=== PATIENT | female | born 1960 | race Caucasian/White ===

== ENCOUNTER 2019-11-30 13:16 | Inpatient (IN) | payer SELFPAY ==
[2019-11-30] VITALS (19 sets, daily range): BP systolic 102–173; BP diastolic 67–100; PULSE 65–92; RESP 15–31; TEMP 36.7–36.9; O2SAT 94–100; BMI 27.3; BMI 27.6
--- NOTE | ~2019-11-30 | CT_ITS ---
EXAMINATION: CT abdomen pelvis w con DATE: 11/30/2019 14:17 INDICATION: Left flank pain. Abdominal pain. TECHNIQUE: Computed tomography (CT) of the abdomen and pelvis was performed with 100 mL Omnipaque 350 intravenous contrast. Automated exposure control and iterative reconstruction technique were employe d. The dose-length product was 429.02 mGy-cm. COMPARISON: CT abdomen and pelvis 03/28/2018 FINDINGS: The visualized portions of the lung bases demonstrate mild atelectasis. No pleural effusion . The heart size is normal. There are coronary artery calcifications. No pericardial effusion. There is a small left posterior diaphragmatic hernia containing fat. The liver, gallbladder, spleen, pancre as, adrenal glands, and kidneys are normal. There is diverticulosis of the colon without evidence of diverticulitis. There are no dilated loops of bowel. The appendix is normal. There are no pathologica lly enlarged lymph nodes. There is no free intraperitoneal fluid. There is severe lower lumbar spondy losis. Lumbar levoscoliosis is noted. IMPRESSION: 1. No etiology for the patient's symptoms. Reviewed, dictated and finalized at location A.
--- NOTE | ~2019-11-30 | XR_ITS ---
EXAMINATION: XR abdomen/kub 1V DATE: 12/01/2019 11:14 INDICATION: Left flank pain. TECHNIQUE: A supine view of the abdomen was obtained. COMPARISON: CT abdomen and pelvis 11/30/2019 FINDINGS: There are no dilated loops of bowel. There are phleboliths in the pelvis. IMPRESSION: 1. Normal bowel gas pattern. Reviewed, dictated and finalized at location A.
--- NOTE | 2019-11-30 13:32 | ED.ABDPAIN ---
HPI - Abdominal Pain General Chief Complaint: Abdominal Pain Stated Complaint: l flank pain Time Seen by Provider: 11/30/19 13:19 Source: RN notes reviewed History of Present Illness HPI narrative: Patient presents shortness of breath from home for left side abdominal pain. Patient states symptoms began 5 days ago and progressively worsened. Pain is located on the left side and radiates around the left flank. Described as sharp and stabbing in nature and associate with nausea and vomiting. Denies any fevers or chills chest pain shortness of breath diarrhea or any other symptoms. States she is taken ibuprofen and Tylenol at home with minimal relief for the pain. Patient states she does have a history of drinking beer daily with her last drink 5 days ago Related Data Allergies Allergy/AdvReac Type Severity Reaction Status Date / Time No Known Allergies Allergy Unknown Verified 11/30/19 13:44 Review of Systems Review of Systems: Narrative: Gen.: Denies fevers or chills ENT: Denies congestion Respiratory: Denies shortness of breath or cough CV: Denies chest pain or palpitations GI: See HPI denies burning, urgency, frequency or hematuria Musculoskeletal: Denies back pain or muscle pain Neuro: Denies numbness, tingling, weakness or focal weakness Skin: Denies rash Except as documented, all other systems reviewed and negative [facility] Past Medical History Medical History Anxiety Hypertension Family History Family History (Updated 09/12/15 @ 23:19 by DOCTOR UNKNOWN) Mother Family history of diabetes mellitus in first degree relative Sibling Family history of diabetes mellitus in first degree relative Social History Social History Smoking status: Former smoker Second hand tobacco smoke exposure: No Smoking end date: 02/15/16 Alcohol intake: current Exam Narrative: Exam Narrative: APPEARANCE: No acute distress, nontoxic, resting in bed HEENT: Normocephalic, atraumatic, OMM RESPIRATORY: No respiratory distress, clear to auscultation bilaterally with no rhonchi wheezing or rales CARDIOVASCULAR: RRR s murmur ABDOMINAL: Soft, nondistended, tender palpation left upper quadrant left lower quadrant, no tenderness in right upper quadrant right lower quadrant, no rebound or guarding MUSCULOSKELETAl: Moves all extremities. No clubbing, cyanosis or edema. NEURO: Awake and alert. Following commands, speech normal, no focal deficits SKIN:: Warm, dry. Normal Color PSYCHIATRIC: Normal affect/mood Course Course Emergency Course: Discussed with NOEL Etienne presentation work-up. Agrees with admission at this time Discussed with patient and family results of workup and diagnosis. Discussed need for admission. Patient and family understand and agree to current treatment plan Vital Signs Vital signs: Vital Signs Pulse Rate 92 11/30/19 13:27 Respiratory Rate 24 H 11/30/19 13:27 Pulse Oximetry 100 11/30/19 13:27 Temperature 98.3 F 11/30/19 13:37 Pulse Rate 84 11/30/19 14:31 Respiratory Rate 21 H 11/30/19 13:46 Blood Pressure 142/86 H 11/30/19 14:31 Pulse Oximetry 100 11/30/19 14:31 MDM - Abdominal Pain Lab Data Result diagrams: 11/30/19 13:34 11/30/19 13:34 Labs: Lab Results 11/30/19 11/30/19 11/30/19 Range/Units 13:34 13:34 13:34 WBC 9.6 (4.5-10.0) K/mm3 RBC 4.44 (4.2-5.4) M/mm3 Hgb 14.0 (12.0-15.0) g/dL Hct 39.1 (37.0-47.0) % MCV 88.1 (80-100) fl MCH 31.5 (26-34) pg MCHC 35.8 (32-36) g/dl RDW 11.1 L (11.5-14.5) % Plt Count 260 (150-375) k/mm3 MPV 10.3 (7.4-10.4) fl Immature Gran % (Auto) 0.2 (0-0.5) % Neut % (Auto) 76.0 H (45.5-73.1) % Lymph % (Auto) 14.0 L (18.3-44.2) % Evangeline % (Auto) 9.4 H (2.6-8.5) % Eos % (Auto) 0.1 (0-4.4) % Baso % (Auto) 0.3 (0.2-1.2)
[2019-11-30 13:47] LABS: Basophils Percent Auto 0.3 % (0.2-1.2); Eosinophils Percent Auto 0.1 % (0-4.4); Hematocrit 39.1 % (37.0-47.0); Immature Granulocyte Absolute 0.02 K/mm3 (0.00-0.031); Immature Granulocyte Percent A 0.2 % (0-0.5); Lymphocytes Absolute Auto 1.34 K/mm3 (0.9-3.2); Mean Corpuscular HGB Conc 35.8 g/dl (32-36); Mean Corpuscular Hemoglobin 31.5 pg (26-34); Mean Corpuscular Volume 88.1 fl (80-100); Mean Platelet Volume 10.3 fl (7.4-10.4); Monocytes Absolute Auto 0.9 K/mm3 (0.1-0.6); Monocytes Percent Auto 9.4 % (2.6-8.5); Neutrophils Absolute Auto 7.3 K/mm3 (1.3-6.7); Platelet Count Result 260 k/mm3 (150-375); Red Blood Count 4.44 M/mm3 (4.2-5.4); Red Cell Distribution Width 11.1 % (11.5-14.5); White Blood Count 9.6 K/mm3 (4.5-10.0)
[2019-11-30] MEDS: SODIUM CHLORIDE 0.9% IV 1,000 ML 999 ML IV CONT (13:49)
[2019-11-30] MEDS: ONDANSETRON INJ 4 MG/2 ML VIAL IV PUSH (13:49)
[2019-11-30] MEDS: MORPHINE SULFATE (*CRX) 4 MG/ML INJ IV PUSH (13:50)
[2019-11-30 13:53] LABS: Add Urine Microscopic? YES; Appearance Urine Clear (Clear); Bacteria Urine Trace /hpf; Bilirubin Urine Negative (Negative); Blood Urine Negative (Negative); Color Urine Yellow (Yellow); Glucose Urine UA Negative (Negative); Ketones Urine Negative (Negative); Leukocyte Esterase Ur Negative LEU/UL (Negative); Mucus Urine Rare /lpf; Nitrate Urine Negative (Negative); Protein Urine Negative (Negative); RBC Urine 0-2 /hpf (0-2); Specific Grav Ur 1.017 (1.001-1.035); Squamous Epithelial Cell Urine Occasional /hpf (Few); WBC Urine 0-3 /hpf
[2019-11-30 14:06] LABS: Alanine Aminotransferase 34 U/L (4-35); Albumin Level 4.8 g/dL (3.5-5.1); Alkaline Phosphatase 75 U/L (38-126); Anion Gap 14 mmol/L (8-16); Aspartate Amino Transferase 49 U/L (14-36); Bilirubin,Total 0.8 mg/dL (0.2-1.3); Blood Urea Nitrogen 14 mg/dL (7-17); Calcium 10.2 mg/dL (8.4-10.2); Carbon Dioxide 27 mmol/L (22-30); Chloride 86 mmol/L (98-107); Estimated CRCL calculation 60 ml/min; Estimated Glomerular Filt Rate > 60; Glucose 118 mg/dL (65-105); Lipase 251 U/L (23-300); Potassium 2.6 mmol/L (3.4-5.0); Sodium 127 mmol/L (137-145)
--- NOTE | 2019-11-30 14:09 | ECG_ITS ---
Measurements Intervals [place] Rate: 73 P: 48 MO: 137 QRS: 33 QRSD: 98 T: 19 QT: 413 QTc: 458 Interpretive Statements SINUS RHYTHM BASELINE ARTIFACT- I, II, III, AVR, AVL, AVF, V3-V6 NORMAL ECG Electronically Signed On 11-30-2019 14:44:08 CDT by Soham Hopkins D.O.
[2019-11-30 14:18] LABS: Magnesium 2.1 mg/dL (1.6-2.3)
[2019-11-30] MEDS: PANTOPRAZOLE SODIUM IV 40 MG VIAL IV PUSH (15:27)
[2019-11-30] MEDS: THIAMINE HCL 200 MG/2 ML VIAL 100 MG IV PUSH (15:27)
--- NOTE | 2019-11-30 15:29 | PC.NURSE ---
Report to [facility] Parada, to continue care. Preparing to admit. Awaiting bed assignment.
--- NOTE | 2019-11-30 16:39 | ADMGEN ---
This patient, Elsi Bella, was admitted to 2 Medical Room 260-01. Patient/family oriented to hospital policies and general routines including ID bracelet, bed and alarms, visiting hours, pain management, procedures, bathroom and other care routines, personal items, smoking policy, room service/diet, and visiting hours. Information on how to activate the Rapid Response Team has been discussed. Patient/Family are encouraged to report perceived risks to care and to ask questions if they do not understand what they are told or what they should do.
[2019-11-30] MEDS: SODIUM CHLORIDE 0.9% IV 1,000 ML 125 ML IV CONT (18:43)
--- NOTE | 2019-11-30 21:00 | PM.IMHP ---
H&P: HPI History of Present Illness Date/Time: 11/30/19 21:00 Chief complaint: Abdominal pain. Narrative: Elsi Bella is a 59-year-old female with history of alcohol abuse, chronic pancreatitis, gastritis, and anxiety presented to the emergency department earlier today with complaints of abdominal pain. She was awakened from sleep at 03:00 on Tuesday morning with pain in the left upper quadrant that she describes as a burning/stabbing pain. It seems to radiate into the left flank and into the left mid back, worse when lying supine and with palpation. When the pain is especially severe she also feels short of breath with nausea and she began vomiting in the last day or so. The symptoms are somewhat similar to when she has had pancreatitis in the past however it has never radiated into the back like it does today. She has not had much to eat due to the pain and nausea. She last had a bowel movement yesterday morning, reports that was unremarkable. She denies fever, chills, and sweats. No hematemesis, melena, or hematochezia. She denies history of kidney stones, dysuria, and hematuria. No chest pain, pleuritic pain, or palpitations. She denies cough and shortness of breath (aside from mild shortness of breath when her pain is severe). She denies epigastric pain, GERD, and indigestion. Her last drink was 5 days ago, and she denies ever having signs or symptoms of alcohol withdrawal. Review of Systems Review of Systems: Narrative: Twelve systems were reviewed with pertinent positives and negatives as per HPI. No recent cold or flu symptoms. She denies exposure to those positive for COVID-19. No dysphagia. No history of kidney stones. Except as documented, all other systems were reviewed and are negative. [facility] Past Medical History Medical History (Updated 11/30/19 @ 22:52 by Jaimie Bae PA-C) Alcohol abuse Alcoholic pancreatitis Anxiety Hypertension Surgical History Surgical History (Updated 11/30/19 @ 22:49 by Jaimie Bae PA-C) History of partial hysterectomy Family History Family History Mother Family history of diabetes mellitus in first degree relative Coronary artery disease Cerebrovascular accident Congestive heart failure Chronic obstructive pulmonary disease Sibling Family history of diabetes mellitus in first degree relative Coronary artery disease Congestive heart failure Chronic obstructive pulmonary disease Sibling Coronary artery disease Congestive heart failure Chronic obstructive pulmonary disease Sibling Coronary artery disease Sibling Coronary artery disease Sibling No problems noted. Social History Social History (Updated 11/30/19 @ 22:50 by Jaimie Bae PA-C) Social History: Surrogate decision maker: Shad Bella, . Code status: Full code. Smoking packs per day: 1.5 Smoking cigarettes per day: 30.0 Years smoked: 23 Smoking pack-years: 34.50 Smoking status: Former smoker Tobacco type: cigarettes Second hand tobacco smoke exposure: Yes Smoking end date: 02/15/16 Alcohol intake: current Drinks per week: 56 Substance use: never Other substance usage details: approximately 8 beers/night. Last use: 11/24/2019. Additional living arrangements comments: Resides in [place] with her . They have 2 grown children. 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 Spiritual care concerns: No Meds Home Medications and Allergies Home Medications Medication Instructions Recorded Confirmed Type metoprolol succinate 50 mg 50 mg PO DAILY #90 tablet 01/05/19 11/30/19 Rx tablet,extended release 24 hr hydrochlorothiazide 50 mg tablet 50 mg PO DAILY #30 tablet 08/12/19 11/30/19 Rx sertraline 50 mg tablet 50 mg PO DAILY #30 tablet 08/12/19 11/30/19 Rx losartan 100 mg tablet 100 mg PO DAILY #90 t
[2019-11-30] MEDS: MORPHINE SULFATE (*CRX) 2 MG/ML INJ IV PUSH (22:17)
[2019-11-30 23:52] LABS: Anion Gap 5 mmol/L (8-16); Blood Urea Nitrogen 9 mg/dL (7-17); Carbon Dioxide 30 mmol/L (22-30); Chloride 96 mmol/L (98-107); Estimated CRCL calculation 80 ml/min; Estimated Glomerular Filt Rate > 60; Glucose 103 mg/dL (65-105); Magnesium 2.2 mg/dL (1.6-2.3); Potassium 2.8 mmol/L (3.4-5.0); Sodium 131 mmol/L (137-145)
[2019-12-01] VITALS: PULSE 71
[2019-12-01] MEDS: POTASSIUM CHLORIDE 20 MEQ TABLET 40 MEQ PO ×2 (00:55→09:14)
[2019-12-01] MEDS: DICYCLOMINE HCL INJ 20 MG/2 ML VIAL IM (00:55)
[2019-12-01] MEDS: KCL 20MEQ/0.9% SOD CHL 1,000 ML 125 ML IV CONT ×2 (00:55→09:16)
[2019-12-01] MEDS: ONDANSETRON INJ 4 MG/2 ML VIAL IV PUSH ×2 (01:02→05:27)
[2019-12-01 04:00] VITALS: PULSE 72
[2019-12-01] MEDS: MORPHINE SULFATE (*CRX) 2 MG/ML INJ IV PUSH ×2 (05:27→10:02)
[2019-12-01 05:34] LABS: Basophils Percent Auto 0.4 % (0.2-1.2); Eosinophils Percent Auto 0.6 % (0-4.4); Hematocrit 34.9 % (37.0-47.0); Hemoglobin 12.1 g/dL (12.0-15.0); Immature Granulocyte Absolute 0.01 K/mm3 (0.00-0.031); Immature Granulocyte Percent A 0.2 % (0-0.5); Lymphocytes Absolute Auto 1.43 K/mm3 (0.9-3.2); Lymphocytes Percent Auto 26.5 % (18.3-44.2); Mean Corpuscular HGB Conc 34.7 g/dl (32-36); Mean Corpuscular Hemoglobin 31.7 pg (26-34); Mean Corpuscular Volume 91.4 fl (80-100); Mean Platelet Volume 10.4 fl (7.4-10.4); Monocytes Absolute Auto 0.7 K/mm3 (0.1-0.6); Monocytes Percent Auto 12.4 % (2.6-8.5); Neutrophils Absolute Auto 3.2 K/mm3 (1.3-6.7); Neutrophils Percent Auto 59.9 % (45.5-73.1); Platelet Count Result 189 k/mm3 (150-375); Red Blood Count 3.82 M/mm3 (4.2-5.4); Red Cell Distribution Width 11.4 % (11.5-14.5); White Blood Count 5.4 K/mm3 (4.5-10.0)
[2019-12-01 05:47] LABS: Potassium 3.3 mmol/L (3.4-5.0)
[2019-12-01 05:55] LABS: Alanine Aminotransferase 40 U/L (4-35); Albumin Level 3.6 g/dL (3.5-5.1); Alkaline Phosphatase 50 U/L (38-126); Anion Gap 5 mmol/L (8-16); Aspartate Amino Transferase 60 U/L (14-36); Bilirubin,Total 0.6 mg/dL (0.2-1.3); Blood Urea Nitrogen 9 mg/dL (7-17); Calcium 8.8 mg/dL (8.4-10.2); Carbon Dioxide 28 mmol/L (22-30); Chloride 100 mmol/L (98-107); Estimated CRCL calculation 80 ml/min; Estimated Glomerular Filt Rate > 60; Glucose 93 mg/dL (65-105); Sodium 133 mmol/L (137-145)
[2019-12-01 06:00] VITALS: BP 139/81; PULSE 68; RESP 16; TEMP 36.5; O2SAT 99
[2019-12-01 08:00] VITALS: PULSE 77
[2019-12-01 09:14] VITALS: PULSE 60
[2019-12-01] MEDS: LOSARTAN POTASSIUM 100 MG TABLET PO (09:14)
[2019-12-01] MEDS: METOPROLOL SUCCINATE EXT REL 50 MG TABCR PO (09:14)
[2019-12-01] MEDS: FOLIC ACID 1 MG TABLET PO (09:14)
[2019-12-01] MEDS: THIAMINE HCL 100 MG TABLET PO (09:14)
[2019-12-01] MEDS: SERTRALINE HCL 50 MG TABLET PO (09:14)
[2019-12-01] MEDS: PANTOPRAZOLE SODIUM IV 40 MG VIAL IV PUSH (09:14)
--- NOTE | 2019-12-01 11:52 | PM.DS ---
DS: Admitting Diagnosis Admitting Diagnosis Admitting Diagnosis: Abdominal pain. DS: Discharge Diagnosis Discharge Diagnosis (1) Left upper quadrant pain: Code(s): R10.12 - Left upper quadrant pain Status: Acute (2) Acute hypokalemia: Code(s): E87.6 - Hypokalemia Status: Acute (3) Acute hyponatremia: Code(s): E87.1 - Hypo-osmolality and hyponatremia Status: Acute (4) Dehydration: Code(s): E86.0 - Dehydration Status: Acute (5) Anxiety: Code(s): F41.9 - Anxiety disorder, unspecified Status: Acute (6) Hypertension: Code(s): I10 - Essential (primary) hypertension Status: Acute (7) Alcohol abuse: Code(s): F10.10 - Alcohol abuse, uncomplicated Status: Inactive (8) Pain in abdominal muscle of left flank: Code(s): M79.18 - Myalgia, other site Status: Acute DS: Summary Hospital Course Hospital Course: Patient is a 59-year-old female who presented emergency room for left-sided abdominal pain/flank pain. In the ER her temperature was 98.3?, pulse 84, respiratory rate 21, blood pressure 142/86, pulse ox 100 on room air. CBC within normal limits. BMP showed sodium 127, potassium 2.6, chloride 86, carbon dioxide 27, BUN 14, creatinine 0.8, glucose 118. Lipase normal. CT of the abdomen pelvis showed no etiology for the patient's symptoms. EKG showed sinus rhythm. Patient was admitted to the hospitalist service and observed overnight. The day of discharge the patient felt better but still had occasional pain. She was able tolerate a regular diet. She had significant pain to palpation to the flank to the belly button which appears to be muscular. It is worse with movement and severely tender on light palpation. She has no epigastric or right upper quadrant pain. She said she vomited because she was in so much pain and that it was not stomach pain that caused her to be nauseous and throw up (thus I did not continue her Protonix). There is no rash to the area but I told her to come back to emergency room or call her primary care doctor if 1 develops as this could be a prodrome of shingles since it appears to be in a dermatome. Again, I do think it is muscular since the patient has been moving her dad and helping him. I have suggested heating pad and gave her a muscle relaxer and told her to rest. CT of the abdomen pelvis does not show any acute abnormalities nor did a KUB. No blood in urine, nephrolithiasis seems less likely. Hydrochlorothiazide was stopped due to hypokalemia and hyponatremia. I am going to continue with the potassium and she should get a repeat BMP next week with results going to Dr. fagan. Depending on those results, this may need to be discontinued. Overall, the patient had improvement the day of discharge. She was educated about the worrisome signs and symptoms to come back to emergency room for was discharged in stable condition. I spent greater than 5 minutes talking about alcohol cessation with her Status at Discharge Functional status at discharge: independent ambulation Overall status at discharge: patient is not back to baseline Time Spent with Patient Time attestation: Total time spent providing and/or coordinating discharge services:34 min Time spent: Greater than 30 minutes Exam Narrative: Exam Narrative: General: Well developed well nourished patient in NAD HEENT: normocephalic Neck: supple Neuro: Alert and oriented x4 CV:RRR, telemetry with no abnormalities Resp:CTA Abd: Soft, non distended. pain to palpation to upper left flank all the way to the left upper quadrant. No rash noted.Positive bowel sounds . No pain to the epigastric or right upper quadrant area. Extremities: No swelling, erythema, or pain to palpation. DS: Data Data Completed and Pending Labs on day of discharge: Labs from last 24 hours 12/01/19 12/01/19 11/30/19 05:05 05:05 23:10 WBC 5.4 RBC 3.82 L Hgb 12.1
[2019-12-01 12:00] VITALS: PULSE 71
== END 2019-12-01 14:20 | disposition home or self-care (01) | DRG 422 ==
LOC: ANHED 13:42 → ANH2MED 16:03
PROVIDERS: Physician Assistant; Admitting Provider Internal Medicine; Emergency Provider Emergency Medicine; PCP Family Medicine; Visit Provider Physician Assistant
DX: E87.6 Hypokalemia (principal); E87.1 Hypo-osmolality and hyponatremia; E86.0 Dehydration; F41.9 Anxiety disorder, unspecified; I10 Essential (primary) hypertension; F10.10 Alcohol abuse, uncomplicated
CPT/HCPCS: 36415; 74018; 74177; 80048; 80053; 81001; 83690; 83735; 85025; 93005; 96361; 96365; 96366; 96375; 99285; A9270; C9113; G0378; G0379; J0500; J2270; J2405; J3411; J3480; J7030; Q9967

== ENCOUNTER 2022-01-14 12:32 | Emergency (ER) | payer SELFPAY ==
--- NOTE | ~2022-01-14 | CT_ITS ---
EXAMINATION: CT abdomen pelvis wo con DATE: 01/14/2022 16:12 INDICATION: Left flank pain TECHNIQUE: Computed tomography (CT) of the abdomen and pelvis was performed without intravenous contr ast. The dose-length product was 437.31 mGy-cm. Automated exposure control and iterative reconstructi on technique were employed. COMPARISON: CT dated 11/30/2019. FINDINGS: Heart size is normal. No significant pleural or pericardial effusion. There is dependent at electasis. The liver, spleen, pancreas, adrenal glands and kidneys are unremarkable. Gallbladder is p resent. There is a fat-containing umbilical hernia. Normal appendix. Colonic diverticulosis without e vidence for diverticulitis. Moderate-severe lumbar spondylosis. No renal or ureteral stones. No hydro nephrosis. Bladder is unremarkable. No abnormal pelvic masses or fluid collections. No free air or fr ee fluid. There is scoliosis. Mild atherosclerosis. No aneurysm. IMPRESSION: 1. No acute abdominal abnormality. Reviewed, dictated and finalized at location A. 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
[2022-01-14 12:33] VITALS: BP 151/91; PULSE 64; RESP 18; TEMP 36.1; O2SAT 100
[2022-01-14 13:50] LABS: Basophils Percent Auto 0.5 % (0.2-1.2); Eosinophils Percent Auto 0.5 % (0-4.4); Hematocrit 40.8 % (37.0-47.0); Hemoglobin 13.6 g/dL (12.0-15.0); Immature Granulocyte Absolute 0.03 K/mm3 (0.00-0.031); Immature Granulocyte Percent A 0.5 % (0-0.5); Lymphocytes Absolute Auto 1.68 K/mm3 (0.9-3.2); Lymphocytes Percent Auto 27.1 % (18.3-44.2); Mean Corpuscular HGB Conc 33.3 g/dl (32-36); Mean Corpuscular Hemoglobin 31.6 pg (26-34); Mean Corpuscular Volume 94.9 fl (80-100); Mean Platelet Volume 11.1 fl (7.4-10.4); Monocytes Absolute Auto 0.9 K/mm3 (0.1-0.6); Monocytes Percent Auto 14.5 % (2.6-8.5); Neutrophils Absolute Auto 3.5 K/mm3 (1.3-6.7); Neutrophils Percent Auto 56.9 % (45.5-73.1); Platelet Count Result 171 k/mm3 (150-375); Red Cell Distribution Width 12.7 % (11.5-14.5); White Blood Count 6.2 K/mm3 (4.5-10.0)
[2022-01-14 13:54] LABS: Appearance Urine Clear (Clear); Bilirubin Urine Negative (Negative); Blood Urine Negative (Negative); Color Urine Yellow (Yellow); Glucose Urine UA Negative (Negative); Ketones Urine Negative (Negative); Leukocyte Esterase Ur Negative LEU/UL (Negative); Nitrate Urine Negative (Negative); Protein Urine Negative (Negative); Specific Grav Ur 1.015 (1.001-1.035)
[2022-01-14 14:02] LABS: Alanine Aminotransferase 33 U/L (6-35); Albumin Level 4.2 g/dL (3.5-5.1); Alkaline Phosphatase 80 U/L (38-126); Anion Gap 8 mmol/L (8-16); Aspartate Amino Transferase 40 U/L (14-36); Bilirubin,Total 0.7 mg/dL (0.2-1.3); Blood Urea Nitrogen 11 mg/dL (7-17); Calcium 9.1 mg/dL (8.4-10.2); Carbon Dioxide 25 mmol/L (22-30); Chloride 103 mmol/L (98-107); Estimated CRCL calculation 79 ml/min; Estimated Glomerular Filt Rate > 60; Glucose 96 mg/dL (65-110); Potassium 3.7 mmol/L (3.4-5.0); Sodium 136 mmol/L (137-145)
[2022-01-14 14:09] LABS: Add Urine Microscopic? YES; Bacteria Urine Trace /hpf; Mucus Urine Rare /lpf; RBC Urine 0-2 /hpf (0-2); Squamous Epithelial Cell Urine Few /hpf (Few); WBC Urine 0-3 /hpf
[2022-01-14] MEDS: KETOROLAC 30 MG/ML VIAL (*BKC) IV PUSH (15:57)
[2022-01-14] MEDS: diazePAM INJ (*CRX) 10 MG/2 ML SYRINGE 5 MG IV PUSH (15:58)
[2022-01-14 16:00] VITALS: O2SAT 99
[2022-01-14 16:03] VITALS: BP 105/68
--- NOTE | 2022-01-14 16:03 | ED.ABDPAIN ---
HPI - Abdominal Pain General Chief Complaint: Abdominal Pain Stated Complaint: back pain/ stomach pain Time Seen by Provider: 01/14/22 15:29 History of Present Illness HPI narrative: Patient is a 61-year-old female who presents ER with left-sided back pain. Ongoing over the last week but worsening today. Cramping. Has a hard time standing upright and laying down flat. Feels best when leaning over. She has some radiation from her abdomen moving to the back as well. She does think it started after eating bites left side. No fevers or chills or sweats. No urinary frequency urgency or dysuria. She is without diarrhea. No vomiting. Related Data Home Medications Medication Instructions Recorded Confirmed aspirin 81 mg tablet,delayed 81 mg PO DAILY 11/30/19 12/12/19 release cholecalciferol (vitamin D3) 100 200 mcg PO DAILY 11/30/19 12/12/19 mcg (4,000 unit) capsule (Vitamin D3) cyanocobalamin (vitamin B-12) 3,000 mcg PO DAILY 11/30/19 12/12/19 1,500 mcg tablet,extended release Allergies Allergy/AdvReac Type Severity Reaction Status Date / Time No Known Allergies Allergy Unknown Verified 01/14/22 16:10 Review of Systems Review of Systems: All systems reviewed & are unremarkable except as noted in HPI and below Constitutional: Constitutional: Denies chills, Denies fatigue and Denies fever(s) ENT: Denies nasal congestion and Denies sore throat Cardiovascular: Cardiovascular: Denies chest pain, Denies rapid heart rate and Denies radiating jaw, neck or arm pain Respiratory: Respiratory: Denies cough and Denies dyspnea Gastrointestinal: Gastrointestinal: Reports abdominal pain, Denies diarrhea, Denies nausea and Denies vomiting Musculoskeletal: Musculoskeletal: Reports back pain and Reports muscle cramps Neurologic: Denies focal weakness and Denies numbness [facility] Past Medical History Medical History Alcohol abuse Alcoholic pancreatitis Anxiety Hypertension Surgical History Surgical History History of partial hysterectomy Family History Family History Mother Family history of diabetes mellitus in first degree relative Coronary artery disease Cerebrovascular accident Congestive heart failure Chronic obstructive pulmonary disease Sibling Family history of diabetes mellitus in first degree relative Coronary artery disease Congestive heart failure Chronic obstructive pulmonary disease Sibling Coronary artery disease Congestive heart failure Chronic obstructive pulmonary disease Sibling Coronary artery disease Sibling Coronary artery disease Sibling No problems noted. Social History Social History Social History: Surrogate decision maker: Shad Bella, . Code status: Full code. Smoking packs per day: 1.5 Smoking cigarettes per day: 30.0 Years smoked: 23 Smoking pack-years: 34.50 Smoking status: Former smoker Tobacco type: cigarettes Second hand tobacco smoke exposure: Yes Smoking end date: 02/15/16 Alcohol intake: current Drinks per week: 56 Substance use: never Other substance usage details: approximately 8 beers/night. Last use: 11/24/2019. Additional living arrangements comments: Resides in [place] with her . They have 2 grown children. 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 Spiritual care concerns: No Exam Narrative: GENERAL: Well-appearing, well-nourished, and in no acute distress. HEAD: Normocephalic, atraumatic. EYES: PERRL and EOMI. ENT: Mucous membranes moist. CHEST: Clear to auscultation. No respiratory distress. HEART: Regular rate and rhythm. Normal peripheral pulses. ABDOMEN: Soft, nontender, nondistended. Back
--- NOTE | 2022-01-14 16:07 | PC.NURSE ---
Patient off unit to CT.
== END 2022-01-14 18:45 | disposition home or self-care (01) ==
PROVIDERS: Emergency Medicine; Emergency Provider Emergency Medicine; PCP Family Medicine
DX: M62.830 Muscle spasm of back (principal); I10 Essential (primary) hypertension; Z87.891 Personal history of nicotine dependence; Z79.82 Long term (current) use of aspirin
CPT/HCPCS: 36415; 74176; 80053; 81001; 85025; 96374; 96375; 99284; J1885; J3360